=== PATIENT | female | born 1980 | race Caucasian/White ===

== ENCOUNTER 2018-04-10 08:13 | Emergency (ER) | payer OTHER ==
[~2018-04-10] VITALS: Ht 172.7 cm; Wt 88.5 kg
[2018-04-10] MEDS ORDERED: YASMIN 28 TABL1 EACH ORAL (08:27)
[2018-04-10] MEDS ORDERED: IBUPROFEN600 MG ORAL (08:27)
--- NOTE | 2018-04-10 08:50 | NUR ---
ED Nurse Note: Pt arrived to ED c/o of bloody stools. Pt states that last night she began having loose tools that progressed to bloody stools. Pt is AAOx4 respirations are even and unlabored.
[2018-04-10 09:26] LABS: ALANINE AMINOTRANSFERASE 19 U/L (12-78); ALBUMIN 3.9 G/DL (3.4-5.0); ALBUMIN/GLOBULIN RATIO 0.9 (1.0-2.7); ALKALINE PHOSPHATASE 67 U/L (46-116); ANION GAP 10 mmol/L (5-15); ASPARTATE AMINO TRANSFERASE 15 U/L (15-37); BILIRUBIN,TOTAL 0.7 MG/DL (0.2-1.0); BLOOD UREA NITROGEN 15 mg/dL (7-18); CALCIUM 9.2 MG/DL (8.5-10.1); CARBON DIOXIDE 25 MMOL/L (21-32); CHLORIDE 103 MMOL/L (98-107); CREATININE 0.9 MG/DL (0.55-1.30); SODIUM 138 MMOL/L (136-145)
[2018-04-10 09:28] LABS: BASOPHILS % (AUTO) 0.8 % (0.0-2.0); EOSINOPHILS % (AUTO) 0.1 % (0.0-3.0); HEMATOCRIT 47.3 % (37.0-47.0); HEMOGLOBIN 15.9 G/DL (12.0-16.0); LYMPHOCYTES % (AUTO) 13.6 % (20.0-45.0); MEAN CORPUSCULAR VOLUME 88 FL (80-99); MONOCYTES % (AUTO) 4.2 % (1.0-10.0); NEUTROPHILS % (AUTO) 81.3 % (45.0-75.0); PLATELET COUNT 271 K/UL (150-450); RED CELL DISTRIBUTION WIDTH 11.7 % (11.6-14.8); WHITE BLOOD COUNT 11.2 K/UL (4.8-10.8)
[2018-04-10 09:30] LABS: BILIRUBIN, URINE NEGATIVE (NEGATIVE); COLOR,URINE PALE YELLOW; GLUCOSE, URINE (UA) NEGATIVE (NEGATIVE); KETONES,URINE 3+ (NEGATIVE); LEUKOCYTE ESTERASE ,URINE 1+ (NEGATIVE); NITRITE,URINE NEGATIVE (NEGATIVE); PH,URINE 5 (4.5-8.0); PROTEIN,URINE NEGATIVE (NEGATIVE); UROBILINOGEN,URINE NORMAL MG/DL (0.0-1.0)
[2018-04-10 09:32] LABS: INR 0.9 (0.9-1.1)
[2018-04-10 09:33] LABS: APPEARANCE,URINE SLIGHTLY CLOUDY
--- NOTE | 2018-04-10 09:43 | NUR ---
ED Nurse Note: PT. WENT TO RADIOLOGY
--- NOTE | 2018-04-10 10:10 | Diagnostic Imaging Report ---
Indication: Abdominal pain and bloody stool Technique: Spiral acquisitions obtained through the abdomen and pelvis. No oral contrast utilized, per emergency room physician request No IV contrast utilized, per referring physician request.. Multiplanar reconstructions were generated. Total dose length product 945.13 mGycm. CTDIvol(s) 17.93 mGy. Dose reduction achieved using automated exposure control Comparison: None Findings: Lack of enteric contrast limits assessment of the GI tract. There is equivocal mild wall thickening of the transverse, descending, sigmoid colon, although this is probably an artifact of under distention. A trace amount of high attenuation material is seen in the distal and terminal ileum and in the ascending colon lumen. No small bowel distention. No free or loculated intraperitoneal gas or fluid is evident. There is a small fat-containing umbilical hernia. Distal esophagus, stomach, duodenum are unremarkable. Lack of IV contrast limits assessment of solid organs. Liver, gallbladder, bile ducts, pancreas, spleen, adrenals, kidneys are unremarkable. Accessory splenules are incidentally noted. No renal or ureteral calculi, hydronephrosis or hydroureter. No retroperitoneal or mesenteric mass or adenopathy. No pelvic mass or adenopathy. Uterus and adnexal structures are unremarkable. The included lung bases are clear except for some posterior dependent atelectatic changes. The bones are unremarkable. Impression: Limited assessment of the GI tract, due to lack of enteric contrast administration Equivocal mild wall thickening of the transverse, descending, and sigmoid colon, probably an artifact of under distention but could indicate colitis Incidental findings as noted, including posterior dependent pulmonary atelectatic changes, tiny fat-containing umbilical hernia, accessory splenules The CT scanner at [facility] is accredited by the [employer] and the scans are performed using protocols designed to limit radiation exposure to as low as reasonably achievable to attain images of sufficient resolution adequate for diagnostic evaluation.
--- NOTE | 2018-04-10 10:51 | Emergency Room Report ---
History of Present Illness General Chief Complaint: Gastrointestinal Bleed Source: Patient Present Illness HPI Patient presents emergency department today complaining of one day of rectal bleeding.. Patient states that she's had a large amount of bowel movements. Sometimes stool mixed with blood sometimes only blood. She complains abdominal cramping. Patient has any fever nausea vomiting diarrhea or chills. Patient denies any chest pain shortness of breath. Patient does admit to eating a rare steak last night. Although she states that her ate the same thing without any issues. Patient denies any fever nausea chills chest pain shortness of breath. Patient denies any dysuria or urinary frequency. Patient complains of left hip pain states that's been getting worse over last few days and she supposed to see a doctor about it. No other complaints are noted. Symptoms noted to be severe.No other modifying factors. No other associated signs and symptoms. No other complaints were noted. Allergies: Coded Allergies: No Known Allergies (Unverified , 04/10/18) Patient History Past Medical History: none Past Surgical History: none Pertinent Family History: none Social History: Denies: smoking, alcohol use, drug use Last Menstrual Period: Dec 2017; on pill Reviewed Nursing Documentation: PMH: Agreed; PSxH: Agreed Nursing Documentation-PMH Past Medical History: No History, Except For Review of Systems All Other Systems: negative except mentioned in HPI Physical Exam Vital Signs Date Time Temp Pulse Resp B/P (MAP) Pulse Ox O2 Delivery O2 Flow Rate FiO2 04/10/18 08:21 99.3 69 16 129/79 98 Room Air Sp02 EP Interpretation: reviewed, normal General Appearance: normal inspection, well appearing, no apparent distress, alert Head: atraumatic Eyes: bilateral eye normal inspection ENT: normal ENT inspection, hearing grossly normal, normal voice Neck: normal inspection, full range of motion, supple, no bony tend Respiratory: normal inspection, lungs clear, normal breath sounds, no respiratory distress, no retraction, no wheezing Cardiovascular #1: regular rate, rhythm, no edema Gastrointestinal: normal inspection, normal bowel sounds, non tender, soft, no guarding, no hernia Rectal: normal exam, normal rectal tone, other - No Gross blood on rectal exam Genitourinary: no CVA tenderness Musculoskeletal: normal inspection, back normal, decreased range of motion - Due to pain left hip, tender - Left hip Neurologic: normal inspection, alert, responsive, speech normal Psychiatric: normal inspection, judgement/insight normal, mood/affect normal Skin: normal inspection, normal color, no rash Medical Decision Making Diagnostic Impression: Primary Impression: Abdominal pain Additional Impression: GI bleeding ER Course Patient presents emergency department today with complaint GI bleeding. Differential considerations include active GI bleeding, colitis, infectious diarrhea just name a few.Given the severity of the patient's presentation I felt this is a highly complex patient. This patient required extensive workup. Patient's laboratory workup was not impressive. CT scan and pelvis shows evidence of colitis. Because this presentation the fact the patient has had some raw steak we will avoid antibiotics at this time. Case was discussed Dr. rizzo. We'll refer patient to Dr. rizzo's practice for further management. Patient was started on probiotics. Recommend Pepto-Bismol.Patient is advised to follow up with primary doctor in 2-3 days and return the emergency room for any worsening symptoms and as needed. Labs Test 04/10/18 08:20 04/10/18 08:26 04/10/18 09:15 Sodium Level 138 MMOL/L (136-145) Potassium Level 4.0 MMOL/L (3.5-5.1) Chloride Level 103 MMOL/L (98-107) Carbon Dioxide Level 25 MMOL/L (21-32) Anion Gap 10 mmol/L (5-15) Blood Urea Nitrogen 15 mg/dL (7-18) Creatinine 0.9 MG/DL (0.55-1.30) Estimat Glomerular Filtration Rate > 60 mL/min (>60) Glucose Level 100 MG/DL (74-106) Calcium Level 9.2 MG/DL (8.5-10.1) Total Bilirubin 0.7 MG/DL (0.2-1.0) Aspartate Amino Transf (AST/SGOT) 15 U/L (15-37) Alanine Aminotransferase (ALT/SGPT) 19 U/L (12-78) Alkaline Phosphatase 67 U/L (46-116) Total Protein 8.3 G/DL (6.4-8.2) Albumin 3.9 G/DL (3.4-5.0) Globulin 4.4 g/dL Albumin/Globulin Ratio 0.9 (1.0-2.7) Lipase 85 U/L (73-393) White Blood Count 11.2 K/UL (4.8-10.8) Red Blood Count 5.40 M/UL (4.20-5.40) Hemoglobin 15.9 G/DL (12.0-16.0) Hematocrit 47.3 % (37.0-47.0) Mean Corpuscular Volume 88 FL (80-99) Mean Corpuscular Hemoglobin 29.5 PG (27.0-31.0) Mean Corpuscular Hemoglobin Concent 33.6 G/DL (32.0-36.0) Red Cell Distribution Width 11.7 % (11.6-14.8) Platelet Count 271 K/UL (150-450) Mean Platelet Volume 7.6 FL (6.5-10.1) Neutrophils (%) (Auto) 81.3 % (45.0-75.0) Lymphocytes (%) (Auto) 13.6 % (20.0-45.0) Monocytes (%) (Auto) 4.2 % (1.0-10.0) Eosinophils (%) (Auto) 0.1 % (0.0-3.0) Basophils (%) (Auto) 0.8 % (0.0-2.0) Prothrombin Time 9.8 SEC (9.30-11.50) Prothromb Time International Ratio 0.9 (0.9-1.1) Activated Partial Thromboplast Time 27 SEC (23-33) Urine Color Pale yellow Urine Appearance Slightly cloudy Urine pH 5 (4.5-8.0) Urine Specific [place] 1.020 (1.005-1.035) Urine Protein Negative (NEGATIVE) Urine Glucose (UA) Negative (NEGATIVE) Urine Ketones 3+ (NEGATIVE) Urine Blood 2+ (NEGATIVE) Urine Nitrite Negative (NEGATIVE) Urine Bilirubin Negative (NEGATIVE) Urine Urobilinogen Normal MG/DL (0.0-1.0) Urine Leukocyte Esterase 1+ (NEGATIVE) Urine RBC 2-4 /HPF (0 - 2) Urine WBC 0-2 /HPF (0 - 2) Urine Squamous Epithelial Cells Moderate /LPF (NONE/OCC) Urine Bacteria Few /HPF (NONE) Urine HCG, Qualitative Negative (NEGATIVE) CT/MRI/US Diagnostic Results CT/MRI/US Diagnostic Results : Imaging Test Ordered: CT abdomen pelvis: Colitis Last Vital Signs Date Time Temp Pulse Resp B/P (MAP) Pulse Ox O2 Delivery O2 Flow Rate FiO2 04/10/18 08:45 69 16 Room Air 04/10/18 08:21 99.3 129/79 98 Status: improved Disposition: HOME, SELF-CARE Condition: Stable Scripts Lact Cmb2/S.thermophl/Bif Cmb1 (VSL#3 PACKET) 1 Each Packet 1 EACH PO BID for 7 Days, PACKET Prov: Adonay Daniels MD 04/10/18 Referrals: NON PHYSICIAN (PCP) Adonay Daniels MD Apr 10, 2018 10:51
--- NOTE | 2018-04-10 11:11 | Diagnostic Imaging Report ---
Indication: Pain for 5 weeks Technique: One view of the pelvis, 2 views of the left hip Comparison: none Findings: No acute fractures. No dislocations. The joint spaces are preserved. Impression: Negative
[2018-04-10] MEDS ORDERED: VSL#3 PACKET1 EAC1 PO (11:18)
[2018-04-10 11:45] VITALS: BP 123/78
--- NOTE | 2018-04-10 11:45 | NUR ---
ED Nurse Note: pt discharge instruction provided w/ prescription, pt education done via discussion and handout, pt iv removed and dressing applied, wristband removed, pt advised to follow up with pcp or return to ed if s/s worsen or new s/s develop, pt verbalized understanding and agrees with plan, vss, resp even and unlabored, ambulatory w/steady gait, all belongings left with pt.
== END 2018-04-10 11:45 | disposition home or self-care (01) ==
LOC: EMR 09:10
DX: K92.2 Gastrointestinal hemorrhage, unspecified (principal); R10.9 Unspecified abdominal pain; M25.552 Pain in left hip
CPT/HCPCS: 36415; 72170; 73502; 74176; 80053; 81003; 81025; 83690; 85025; 85610; 85730; 96360; 99284